=== PATIENT | male | born 1945 | race Caucasian/White ===

== ENCOUNTER 2021-09-17 15:13 | Inpatient (IN) | payer MEDICARE, SELFPAY ==
[~2021-09-17] VITALS: Ht 170.2 cm; Wt 64.5 kg
[~2021-09-17 15:13] MED LIST: AMAN100C19 PO; AMLO5TAB4 PO; ESCI10TA PO; FER300L PO; GLIP5TAB26 PO; HYT1 PO; LEVO25TA7 PO; TRAZ-250 PO
[2021-09-17 15:15] VITALS: BP_SYST 127
--- NOTE | 2021-09-17 15:15 | NUR ---
pt. bib ACLS from [facility] with c/o N/V and abd. pain X 3 weeks, was reported pt. has been to urgent care 3 X and given zofran and pain meds., pt. is actively vomitting coffee brown colored emesis, has hx. of stomach ulcer and surgery, is pale and tachycardic
--- NOTE | 2021-09-17 15:23 | NUR ---
ER at bedside examining patient.
[2021-09-17] MEDS ORDERED: PANTOPRAZOLE SODIUM 40 MG/VIAL (PROTONIX) IVP ONE (15:30)
[2021-09-17] MEDS ORDERED: ONDANSETRON HCL 4 MG/2 ML VIAL IVP ONE (15:30)
[2021-09-17] MEDS ORDERED: NACL 0.9% 1,000 ML IV ONE ×2 (15:30→22:00)
--- NOTE | 2021-09-17 15:34 | NUR ---
rectal exam done by Dr. Navarro, specimen sent
--- NOTE | 2021-09-17 15:40 | NUR ---
radiology at bedside for chest xray
[2021-09-17] MEDS ORDERED: NACL 0.9% 2,000 ML IV ONE (15:45)
[2021-09-17] MEDS ORDERED: cefTRIAXone 1 GM VIAL IM ONE (16:15)
--- NOTE | 2021-09-17 16:27 | NUR ---
pt. continue to vomit, IVP Zofran given
[2021-09-17 16:30] LABS: BASOPHILS # (AUTO) 0.1 K/uL (0.0-0.2); BASOPHILS % (AUTO) 0.7 % (0.0-2.0); EOSINOPHILS % (AUTO) 0.3 % (0.0-4.0); HEMOGLOBIN 11.1 g/dL (14.0-18.0); LYMPHOCYTES # (AUTO) 0.9 K/uL (1.0-5.5); LYMPHOCYTES % (AUTO) 9.2 % (20.5-51.5); MEAN CORPUSCULAR HEMOGLOBIN 33 pg (27-31); MEAN CORPUSCULAR HGB CONC 35 % (32-36); MEAN CORPUSCULAR VOLUME 95 fL (79.0-98.0); MONOCYTES # (AUTO) 0.3 K/uL (0.0-1.0); MONOCYTES % (AUTO) 2.8 % (1.7-9.3); NEUTROPHILS # (AUTO) 8.8 K/uL (1.8-7.7); PLATELET COUNT (AUTO) 377 K/uL (130-430); RED BLOOD CELL COUNT(AUTO) 3.37 MIL/uL (4.2-6.2); RED CELL DISTRIBUTION WIDTH 12.9 % (9.0-15.0); WHITE BLOOD COUNT (AUTO) 10.1 K/uL (4.8-10.8)
--- NOTE | 2021-09-17 16:36 | NUR ---
covid and MRSA swabs sent
[2021-09-17 16:45] LABS: ANION GAP 14 (5-15); CALCIUM 9.7 mg/dL (8.4-11.0); CHLORIDE 96 mmol/L (98-107); CREATININE 1.63 mg/dL (0.55-1.30); GLUCOSE 240 mg/dL (70-99); POTASSIUM 4.7 mmol/L (3.5-5.1); SODIUM SERUM 139 mmol/L (136-145); UREA NITROGEN, BLOOD 42 mg/dL (8-21)
--- NOTE | 2021-09-17 16:49 | NUR ---
Sister Laurence [phone]
--- NOTE | 2021-09-17 16:51 | NUR ---
pts. RR 40, O2 sat 100% pt. feels winded started O2 via NC at 2L/min
--- NOTE | 2021-09-17 16:56 | NUR ---
spoke with pts. sister Laurence phone update given
[2021-09-17 16:58] LABS: PROTHROMBIN TIME 10.2 SECS (9.5-12.5)
[2021-09-17 17:00] LABS: ALANINE AMINOTRANSFERASE 28 U/L (12-78); ASPARTATE AMINOTRANSFERASE 22 U/L (10-37); LIPASE 47 U/L (73-393); TOTAL BILIRUBIN 0.5 mg/dL (0.0-1.0)
[2021-09-17 17:05] LABS: ALCOHOL, BLOOD < 3 mg/dL (<10)
--- NOTE | 2021-09-17 18:01 | NUR ---
pts. states feels much better, less SOB remains on 2L/NC sat 99%, consent signed for CT with contrast
--- NOTE | 2021-09-17 18:35 | NUR ---
Patient transported to radiology via gurney, accompanied by staff, for CT scan.
--- NOTE | 2021-09-17 20:23 | NUR ---
16 # FR In and Out catheter with use of sterile technique. Immediate return of 200 ml urine noted. Urine sample collected and sent to lab. Pt tolerated procedure .
--- NOTE | 2021-09-17 20:24 | NUR ---
Pt A&Ox3, respirations even and unlabored, cap refill <3
--- NOTE | 2021-09-17 20:40 | NUR ---
Patient will be admitted to care of [facility]. Admitted to TELE unit. PENDING ASSIGNMENT. Belongings list completed. Complete and up to date summary report printed. SBAR report to be given at bedside with opportunity for questions.
[2021-09-17] MEDS ORDERED: ONDANSETRON HCL 4 MG/2 ML VIAL IVP PRN (21:00)
[2021-09-17 21:19] LABS: BILIRUBIN,URINE NEGATIVE (NEGATIVE); BLOOD, URINE NEGATIVE (NEGATIVE); CLARITY/URINE CLEAR (CLEAR); COLOR,URINE YELLOW (YELLOW); GLUCOSE,URINE NEGATIVE (NEGATIVE); KETONES,URINE 1+ (NEGATIVE); LEUKOCYTE ESTERASE ,URINE NEGATIVE (NEGATIVE); NITRITE, URINE NEGATIVE (NEGATIVE); PH,URINE 6.5 (5.0-8.0); PROTEIN URINE NEGATIVE (NEGATIVE); UROBILINOGEN,URINE 0.2 (0.2-1.0)
--- NOTE | 2021-09-17 21:46 | NUR ---
# 20 gauge angiocath placed to RFA. Use of asceptic technique. Opsite placed over site. Blood return noted. Flushed with 10 cc of normal saline. No evidence of infiltration noted. Patient tolerated well.
--- NOTE | 2021-09-17 22:04 | NUR ---
Transfer to 103B via ACLS protocol. Licensed nurse present. IV present no signs or symptoms of infiltration.
[2021-09-17 22:59] LABS: BASOPHILS % (AUTO) 0.1 % (0.0-2.0); EOSINOPHILS % (AUTO) 0.1 % (0.0-4.0); HEMATOCRIT 24.3 % (36-54); HEMOGLOBIN 7.8 g/dL (14.0-18.0); LYMPHOCYTES # (AUTO) 0.8 K/uL (1.0-5.5); LYMPHOCYTES % (AUTO) 7.1 % (20.5-51.5); MEAN CORPUSCULAR HEMOGLOBIN 33 pg (27-31); MEAN CORPUSCULAR HGB CONC 32 % (32-36); MEAN CORPUSCULAR VOLUME 102 fL (79.0-98.0); MONOCYTES # (AUTO) 0.5 K/uL (0.0-1.0); MONOCYTES % (AUTO) 4.5 % (1.7-9.3); NEUTROPHILS # (AUTO) 10.4 K/uL (1.8-7.7); NEUTROPHILS % (AUTO) 88.2 % (40.0-70.0); PLATELET COUNT (AUTO) 329 K/uL (130-430); RED BLOOD CELL COUNT(AUTO) 2.38 MIL/uL (4.2-6.2); RED CELL DISTRIBUTION WIDTH 13.5 % (9.0-15.0); WHITE BLOOD COUNT (AUTO) 11.8 K/uL (4.8-10.8)
[2021-09-18] VITALS (27 sets, daily range): BP systolic 62–119
[2021-09-18] MEDS: NACL 0.9% 1,000 ML IV SCH ×3 (00:25→16:15)
--- NOTE | 2021-09-18 00:43 | NUR ---
CONSULTATION CALLED FOR DR. ESEQUIEL LOPEZ IS SENIOR FORMULATION SCIENTIST FOR CONSULT OF GI BLEED ORDER BY SPOKE WITH KEYANNA
--- NOTE | 2021-09-18 03:10 | NUR ---
Rapid response late entry d/t patient care Patient's condition changed, breathing labored, desaturating, low B/P 54/34. Rapid response called
[2021-09-18] MEDS ORDERED: NACL 0.9% 1,000 ML IV ONE ×3 (03:30→11:00)
--- NOTE | 2021-09-18 03:46 | NUR ---
DR ANNABELLE VERGARA
--- NOTE | 2021-09-18 04:05 | NUR ---
TRANSFER FROM [facility] PT TRANSFERRED FROM [facility] VIA BED AT THIS TIME. PT IS OBTUNDED AND ON BIPAP. AT 409 PT BECAME BRADYCARDIC WITH HR ~37 SUSTAINING. ATROPINE WAS GIVEN AND AT 412 PT BECAME ASYSTOLE ON MONITOR, CPR WAS STARTED AND ALEX DOMINGUEZ CALLED. SEE CODE SHEET FOR DETAILS.
--- NOTE | 2021-09-18 04:06 | NUR ---
Transferred to ICU late entry d/t patient care Per Dr. Ortiz's order
--- NOTE | 2021-09-18 04:13 | NUR ---
BT INITIATION: Consent signed per FAMILY agreeing to administration of blood. Blood has been type and crossmatched. Blood sent from blood bank. Information on unit of blood checked against patient wristband at bedside by two nurses. All information matches. Patient or responsible libertarian informed of potential complications associated with blood transfusion. Informed of possible transfusion reaction symptoms. Aware of need to notify nurse at once of itching, shortness of breath, flushing, feeling of impending doom, or other symptoms not previously present. Vital signs taken within 5 minutes prior to initiation of transfusion. RN will remain with patient for first 15 minutes of transfusion at which time vital signs will be re-assessed.
--- NOTE | 2021-09-18 04:30 | NUR ---
RAPID BLOOD TRANSFUSION AT THIS TIME MD DR. ARMSTRONG CALLED FOR 2 UNITS PRBCS STAT TO BE RAPIDLY INFUSED. 2 UNITS PRBCS WERE OBTAINED FROM BLOOD BANK AND GIVEN VIA RAPID TRANSFUSER DURING PT CODE BLUE. AT THIS TIME CPR IS IN PROGRESS, PT IS STILL ASYSTOLE WITH ZERO PULSES.
--- NOTE | 2021-09-18 04:45 | NUR ---
DR. FREIDA LOZADA MD REQUESTING TO SPEAK WITH GI CONSULT REGARDING PT. DR. GUAN WAS CONSULTED AND ORDERS RECEIVED. WILL CARRY OUT ORDERED.
--- NOTE | 2021-09-18 04:53 | NUR ---
INTUBATION PT INTUBATED BY ER AT THIS TIME. PT IS OBTUNDED S/P CODE BLUE WITH ROSC. ETT 7.5, 25 CM AT LIP LINE. CURRENT VENT SETTINGS: AC 20, TV 500, FIO2 100%, PEEP 5. WILL CONTINUE TO MONITOR PT.
[2021-09-18] MEDS ORDERED: NOREPINEPHRINE 4 MG/4 ML VIAL IV ONE ×3 (04:58→08:48)
[2021-09-18] MEDS ORDERED: PANTOPRAZOLE SODIUM 40 MG/VIAL (PROTONIX) IVP ONE (05:15)
[2021-09-18] MEDS ORDERED: AZITHROMYCIN 250 MG in NS 250 ML IV ONE (05:15)
--- NOTE | 2021-09-18 05:20 | NUR ---
RT NOTES AT BEDSIDE WHEN ALEX DOMINGUEZ CALLED @ 0413. CPR STARTED. ROSC ACHIEVED @ 0444. ASSISTED DR ARMSTRONG WITH INTUBATION @ 0453 USING 7.5 ETT SECURED AT [address]. SUCTIONED LARGE AMOUNT OF BLOOD ORALLY DURING CPR. VERIFIED ETT PLACEMENT WITH CO2 DETECTOR. B/S HEARD BILATERALLY WITH GOOD BILATERAL CHEST RISE. CXRAY TO BE OBTAINED. ABG TO BE OBTAINED 1 HOUR POST INTUBATION.
[2021-09-18] MEDS ORDERED: AZITHROMYCIN 500 MG/VIAL (ZITHROMAX) IV ONE (05:28)
[2021-09-18] MEDS ORDERED: IPRATROPIUM/ALBUTEROL SULFATE 3 ML AMPUL.NEB (DUONEB) INH PRN (05:30)
[2021-09-18] MEDS ORDERED: PANTOPRAZOLE SODIUM 40 MG/VIAL (PROTONIX) ONE (05:32)
--- NOTE | 2021-09-18 05:40 | NUR ---
PAGED DR. ALANIS [phone] ORDERS SPOKE WITH JOSE
[2021-09-18] MEDS ORDERED: NALOXONE HCL 0.4 MG/ML AMP (NARCAN) IVP PRN (05:45)
[2021-09-18] MEDS ORDERED: MORPHINE 2 MG/ML INJ. SYRINGE IVP PRN (05:45)
[2021-09-18] MEDS ORDERED: LORazepam 2 MG/ML VIAL IM PRN (05:45)
[2021-09-18] MEDS ORDERED: PROPOFOL DRIP 100 ML IV PRN (05:45)
[2021-09-18] MEDS: PANTOPRAZOLE SODIUM 40 MG in NS 50 ML IV SCH ×4 (05:53→21:29)
--- NOTE | 2021-09-18 06:07 | NUR ---
DR. ANNABELLE ABAD MADE AWARE OF PT CURRENT ABGS AND THAT PT IS HYPOTENSIVE DESPITE MAX DOSING OF LEVOPHED. ORDERS RECEIVED FROM MD AND WILL BE CARRIED OUT ORDERED.
[2021-09-18] MEDS ORDERED: SODIUM BICARBONATE 8.4% JECT 50 MEQ/50 ML SYRINGE IVP ONE ×2 (06:15→13:00)
[2021-09-18] MEDS ORDERED: ALBUMIN HUMAN 25% 100 ML IV PRN (06:15)
[2021-09-18] MEDS ORDERED: SODIUM BICARBONATE 8.4% JECT 100 MEQ in 0.45% NACL 1,000 ML IVP SCH (06:15)
[2021-09-18] MEDS ORDERED: PHENYLEPHRINE HCL 10 MG/ML VIAL (NEOSYNEPHRINE) ONE (06:15)
[2021-09-18] MEDS ORDERED: ALBUMIN HUMAN 25% 100 ML IV ONE (06:21)
[2021-09-18] MEDS ORDERED: SODIUM BICARBONATE 8.4% JECT 50 MEQ/50 ML SYRINGE ONE ×2 (06:32→22:13)
[2021-09-18] MEDS ORDERED: IPRATROPIUM/ALBUTEROL SULFATE 3 ML AMPUL.NEB (DUONEB) INH SCH (07:00)
--- NOTE | 2021-09-18 07:50 | NUR ---
ENDORSEMENT BEDSIDE REPORT GIVEN TO AM RN USING SBAR APPROACH.
[2021-09-18 08:07] LABS: EOSINOPHILS # (AUTO) 0.2 K/uL (0.0-0.4); EOSINOPHILS % (AUTO) 5.1 % (0.0-4.0); HEMATOCRIT 29.4 % (36-54); HEMOGLOBIN 9.5 g/dL (14.0-18.0); LYMPHOCYTES # (AUTO) 1.1 K/uL (1.0-5.5); MEAN CORPUSCULAR HEMOGLOBIN 31 pg (27-31); MEAN CORPUSCULAR HGB CONC 32 % (32-36); MEAN CORPUSCULAR VOLUME 95 fL (79.0-98.0); MONOCYTES # (AUTO) 0.4 K/uL (0.0-1.0); MONOCYTES % (AUTO) 10.8 % (1.7-9.3); NEUTROPHILS # (AUTO) 1.9 K/uL (1.8-7.7); NEUTROPHILS % (AUTO) 54.1 % (40.0-70.0); PLATELET COUNT (AUTO) 201 K/uL (130-430); RED CELL DISTRIBUTION WIDTH 16.4 % (9.0-15.0); WHITE BLOOD COUNT (AUTO) 3.5 K/uL (4.8-10.8)
[2021-09-18] MEDS ORDERED: fentaNYL CITRATE/PF 100 MCG/2 ML AMP ONE (08:07)
[2021-09-18] MEDS: NOREPINEPHRINE BITARTRATE 8 MG in NS 242 ML IV PRN ×3 (08:08→11:04)
[2021-09-18] MEDS ORDERED: MIDAZOLAM HCL 5 MG/5 ML VIAL ONE (08:08)
[2021-09-18] MEDS: PHENYLEPHRINE HCL 100 MG in NS 240 ML IV PRN (08:11)
[2021-09-18 08:16] LABS: ANION GAP 29 (5-15); CALCIUM 7.2 mg/dL (8.4-11.0); CHLORIDE 113 mmol/L (98-107); CREATININE 2.45 mg/dL (0.55-1.30); GLUCOSE 120 mg/dL (70-99); POTASSIUM 4.8 mmol/L (3.5-5.1); SODIUM SERUM 157 mmol/L (136-145); UREA NITROGEN, BLOOD 57 mg/dL (8-21)
[2021-09-18 08:23] LABS: CHOLESTEROL 67 mg/dL (<200); HDL CHOLESTEROL 27 mg/dL (>45); LDL CHOLESTEROL 33 mg/dL (<100); TRIGLYCERIDES 68 mg/dL (30-150)
[2021-09-18 08:30] LABS: ALANINE AMINOTRANSFERASE 2702 U/L (12-78); ALBUMIN 1.5 g/dL (3.4-4.8); PHOSPHORUS 11.3 mg/dL (2.7-4.5); THYROID STIMULATING HORMONE 0.41 uIu/mL (0.36-3.74); TOTAL BILIRUBIN 0.5 mg/dL (0.0-1.0)
--- NOTE | 2021-09-18 09:15 | NUR ---
EGD done at bedside by Dr Gallo, received new orders.
--- NOTE | 2021-09-18 09:30 | NUR ---
Called Dr. Puma Jansen with a consult, spoke with Laine from doctors office
[2021-09-18 09:32] LABS: ASPARTATE AMINOTRANSFERASE 3444 U/L (10-37)
--- NOTE | 2021-09-18 09:45 | NUR ---
Called Dr. Avelar with a consult, spoke with Jena parker doctors office
--- NOTE | 2021-09-18 10:10 | NUR ---
Nutrition Update Molina Scale 15 noted. Pt admitted for dehydration, sepsis. Diet: NPO BMI: 22.3 kg/m2 RD to follow per nutrition care standards.
--- NOTE | 2021-09-18 11:00 | NUR ---
Dr Avelar at bedside, updated on pt status. New orders received
[2021-09-18 11:45] LABS: HEMOGLOBIN 8.4 g/dL (14.0-18.0)
[2021-09-18 11:49] LABS: HEMATOCRIT 25.6 % (36-54); MEAN CORPUSCULAR HEMOGLOBIN 31 pg (27-31); MEAN CORPUSCULAR HGB CONC 33 % (32-36); MEAN CORPUSCULAR VOLUME 93 fL (79.0-98.0); PLATELET COUNT (AUTO) 156 K/uL (130-430); RED BLOOD CELL COUNT(AUTO) 2.74 MIL/uL (4.2-6.2); RED CELL DISTRIBUTION WIDTH 16.1 % (9.0-15.0)
[2021-09-18 11:52] LABS: WHITE BLOOD COUNT (AUTO) 1.2 K/uL (4.8-10.8)
--- NOTE | 2021-09-18 12:00 | NUR ---
Spoke with Dr Danielson on the telephone, updated on pt status. New orders received
--- NOTE | 2021-09-18 12:00 | NUR ---
Two liter NS boluses given, no change in blood pressure.
--- NOTE | 2021-09-18 12:21 | NUR ---
Called Dr. Rush with a consult,spoke with Berenice from the exchange
--- NOTE | 2021-09-18 13:00 | NUR ---
Inserted Chong catheter using sterile technique. Pt tolerated procedure, no signs of discomfort.
[2021-09-18] MEDS ORDERED: cefTRIAXone 1 GM in D5W 50 ML IV SCH (14:00)
--- NOTE | 2021-09-18 15:40 | NUR ---
RT Note 1540 Increased PEEP to [address] Danielson RN at bedside and is aware of changes Addendum: 09/18/21 at 1632 by Danelle Willett RT Amended: Links added.
--- NOTE | 2021-09-18 16:30 | NUR ---
Pt's family at bedside, answered all questions.
[2021-09-18] MEDS: VASOPRESSIN 40 UNITS in NS 38 ML IV PRN (17:16)
[2021-09-18] MEDS: NOREPINEPHRINE BITARTRATE 16 MG in NS 218 ML IV PRN (17:43)
--- NOTE | 2021-09-18 18:30 | NUR ---
Transfused one unit of PRBCs. Pt tolerated well
--- NOTE | 2021-09-18 19:30 | NUR ---
Received report and assumed care. Patient non responsive. Vent to ETT in place with settings in AC 20. O2 saturations continue to deteriorate ranging from 67-73%. Blood pressure being supported with vasopressors but still not maintaining normal values. BP 64/33 Nurse will keep Doctors informed.
[2021-09-18] MEDS: SODIUM BICARBONATE 8.4% JECT 100 MEQ in D5W 1,000 ML IVP SCH (20:00)
[2021-09-18 20:42] LABS: HEMOGLOBIN 9.6 g/dL (14.0-18.0); MEAN CORPUSCULAR HEMOGLOBIN 30 pg (27-31); MEAN CORPUSCULAR HGB CONC 33 % (32-36); MEAN CORPUSCULAR VOLUME 89 fL (79.0-98.0); PLATELET COUNT (AUTO) 124 K/uL (130-430); RED BLOOD CELL COUNT(AUTO) 3.25 MIL/uL (4.2-6.2); RED CELL DISTRIBUTION WIDTH 16.9 % (9.0-15.0)
[2021-09-18 20:55] LABS: INR 2.8 (0.80-1.20); PROTHROMBIN TIME 28.8 SECS (9.5-12.5)
[2021-09-18] MEDS: ALBUMIN HUMAN 25% 100 ML IV PRN (21:33)
[2021-09-18 21:34] LABS: WHITE BLOOD COUNT (AUTO) 0.8 K/uL (4.8-10.8)
--- NOTE | 2021-09-18 21:42 | NUR ---
blood pressure 62/33 levophed maxed at 1 mcg/kg/min, Neosynephrine maxed at 3 mcg/k/min and vasopressin maxed at 0.04 units/min. Albumin 25 % 100 ml started to attempt to support BP. if no results Dr Avelar will be paged.
--- NOTE | 2021-09-18 21:56 | NUR ---
PAGED: DR. BELL [phone] CRITICAL LABS SPOKE WITH BK
--- NOTE | 2021-09-18 21:57 | NUR ---
PAGED DR. ALANIS [phone] ORDERS SPOKE WITH BK
--- NOTE | 2021-09-18 22:00 | NUR ---
Received call back from Dr Avelar after reporting low BP 63/37. Order received to give NS bolus 500 cc x 1 now. Received call back from Dr Danielson, reported low O2 saturations 64%. Order received to increase peep to 10 +.
[2021-09-18] MEDS ORDERED: NS 500 ML IV ONE (22:15)
--- NOTE | 2021-09-18 22:15 | NUR ---
Dr Danielson at bedside. Order for Dopamine drip received and infusion has been started.
[2021-09-18] MEDS ORDERED: DOPamine PREMIX 250 ML IV ONE (22:41)
--- NOTE | 2021-09-18 23:34 | NUR ---
PAGED DR. ALANIS [phone] ORDERS SPOKE WITH BK
[2021-09-18] MEDS: DOPamine PREMIX 250 ML IV PRN (23:44)
[2021-09-18 23:57] LABS: INR 2.8 (0.80-1.20); PROTHROMBIN TIME 28.6 SECS (9.5-12.5)
[2021-09-19] VITALS (13 sets, daily range): BP systolic 58–83
[2021-09-19] MEDS ORDERED: SODIUM BICARBONATE 8.4% JECT 50 MEQ/50 ML SYRINGE ONE (00:05)
--- NOTE | 2021-09-19 00:08 | NUR ---
ABG results reported to Dr Danielson. Orders to infuse sodium Bicarb 2 amps received and given to patient.
[2021-09-19] MEDS ORDERED: SODIUM BICARBONATE 8.4% JECT 50 MEQ/50 ML SYRINGE IVP ONE (00:15)
[2021-09-19] MEDS: PANTOPRAZOLE SODIUM 40 MG in NS 50 ML IV SCH ×3 (01:15→08:00)
[2021-09-19 03:28] LABS: MEAN CORPUSCULAR HEMOGLOBIN 30 pg (27-31); MEAN CORPUSCULAR HGB CONC 33 % (32-36); MEAN CORPUSCULAR VOLUME 89 fL (79.0-98.0); PLATELET COUNT (AUTO) 95 K/uL (130-430); RED BLOOD CELL COUNT(AUTO) 2.98 MIL/uL (4.2-6.2); RED CELL DISTRIBUTION WIDTH 17.1 % (9.0-15.0)
[2021-09-19] MEDS ORDERED: VANCOMYCIN HCL 1 GM/NS PREMIX 250 ML IV ONE (03:30)
[2021-09-19 03:31] LABS: HEMATOCRIT 26.8 % (36-54); HEMOGLOBIN 8.9 g/dL (14.0-18.0)
[2021-09-19 03:32] LABS: ANION GAP 26 (5-15); CHLORIDE 114 mmol/L (98-107); CREATININE 2.99 mg/dL (0.55-1.30); POTASSIUM 3.7 mmol/L (3.5-5.1); SODIUM SERUM 158 mmol/L (136-145); UREA NITROGEN, BLOOD 71 mg/dL (8-21)
[2021-09-19 03:34] LABS: CALCIUM 5.9 mg/dL (8.4-11.0)
[2021-09-19 03:35] LABS: GLUCOSE 47 mg/dL (70-99)
[2021-09-19 03:39] LABS: WHITE BLOOD COUNT (AUTO) 1.7 K/uL (4.8-10.8)
[2021-09-19] MEDS ORDERED: DEXTROSE 50% JECT 50 ML DISP.SYRIN ONE (03:41)
--- NOTE | 2021-09-19 03:50 | NUR ---
Dr Cheko Rush at bedside for evaluation and assessment. Orders received. will continue to monitor.
[2021-09-19 04:05] LABS: TOTAL BILIRUBIN 0.7 mg/dL (0.0-1.0)
[2021-09-19 04:06] LABS: ALANINE AMINOTRANSFERASE 3404 U/L (12-78); ALBUMIN 1.9 g/dL (3.4-4.8)
[2021-09-19] MEDS ORDERED: D5NS 1,000 ML IV SCH (04:30)
[2021-09-19 05:40] LABS: ASPARTATE AMINOTRANSFERASE 5222 U/L (10-37)
[2021-09-19] MEDS ORDERED: MEROPENEM 500 MG in NS 50 ML IV SCH (06:00)
[2021-09-19 06:37] LABS: ATYPICAL LYMPHOCYTES % 4 % (0-0); BAND % (MANUAL) 18 % (0-6); BASOPHILS % (MANUAL) 0 % (0-2); EOSINOPHILS % (MANUAL) 0 % (0-7); LYMPHOCYTES % (MANUAL) 55 % (20-46); METAMYELOCYTES % 10 % (0-0); MONOCYTES % (MANUAL) 4 % (0-11); MYELOCYTES % 4 % (0-0)
--- NOTE | 2021-09-19 07:15 | NUR ---
OPENING NOTE: REPORT RCVD FROM OUTGOING NOC RN, ALL CARES ASSUMED. PATIENT REMAINS CLINICALLY UNSTABLE, CURRENT BP 77/42, HR54, SPO2 53%. PATIENT IS A 1:1 DUE TO MULTIPLE DRIPS AND INSTABILITY.
[2021-09-19] MEDS: ALBUMIN HUMAN 25% 100 ML IV PRN (08:00)
--- NOTE | 2021-09-19 08:00 | NUR ---
DR. ELLIS MAKING ROUNDS, UPDATES GIVEN, NO NEW ORDERS.
--- NOTE | 2021-09-19 08:15 | NUR ---
DR. ALANIS MAKING ROUNDS, BEDSIDE REPORT GIVE, NO NEW ORDERS.
--- NOTE | 2021-09-19 08:50 | NUR ---
PATIENT CODE STATUS CHANGED TO DNR BY SISTER LEANDRA. VERIFIED AND CONFIRMED BY SECOND RN. DNR PRINTED AND SIGNED BY TWO RN'S, NOTIFIED OF CODE STATUS CHANGE. NEW DNR FORM IN CHART. CHARGE NURSE MADE AWARE.
[2021-09-19] MEDS ORDERED: CEFEPIME 1 GM in D5W 50 ML IV SCH (09:00)
[2021-09-19] MEDS ORDERED: AZITHROMYCIN 250 MG in NS 250 ML IV SCH (09:00)
[2021-09-19] MEDS: SODIUM BICARBONATE 8.4% JECT 100 MEQ in D5W 1,000 ML IVP SCH (09:01)
[2021-09-19] MEDS: DOPamine PREMIX 250 ML IV PRN (09:01)
[2021-09-19] MEDS: PHENYLEPHRINE HCL 100 MG in NS 240 ML IV PRN (09:02)
[2021-09-19] MEDS: NOREPINEPHRINE BITARTRATE 16 MG in NS 218 ML IV PRN (09:02)
[2021-09-19] MEDS: VASOPRESSIN 40 UNITS in NS 38 ML IV PRN (09:03)
--- NOTE | 2021-09-19 09:07 | NUR ---
FAMILY ADVISED TO COME TO HOSPITAL. SISTER LEANDRA AND COUSIN PARISH AGREED.
--- NOTE | 2021-09-19 09:08 | NUR ---
VITALS: BP 60/42, HR 60, R20, SPO2 41% ON MONITOR.
--- NOTE | 2021-09-19 09:09 | NUR ---
VENT SETTINGS: AC, R20, TV500, FIO2 100%, PEEP 10, SPO2 40% ON MONITOR. PATIENT PALE AND COOL TO TOUCH.
--- NOTE | 2021-09-19 09:45 | NUR ---
FAMILY AT BEDSIDE, ALL QUESTIONS ANSWERED. FAMILY REMAINS IN AGREEABLE WITH DNR STATUS.
--- NOTE | 2021-09-19 10:08 | NUR ---
ASYSTOLE NOTED ON MONITOR, PULSES NOT PALPABLE. ETT REMAINS IN PLACE, PATIENT REMAINS ON VENTILATOR.
--- NOTE | 2021-09-19 10:09 | NUR ---
TIME OF 1009, VERIFIED BY TWO RNS.
--- NOTE | 2021-09-19 10:10 | NUR ---
VENTILATOR TURNED OFF BY RT, FAMILY AT BEDSIDE
--- NOTE | 2021-09-19 10:14 | NUR ---
ALL MD'S HAVE BEEN NOTIFIED OF TOD.
--- NOTE | 2021-09-19 10:15 | NUR ---
[facility] REFERENCE # [id number]
--- NOTE | 2021-09-19 10:16 | NUR ---
HEAVY LIFT RIGGER CALLED, NOT A CORONERS CASE, BODY RELEASED, NO REFERENCE # REQUIRED.
--- NOTE | 2021-09-19 10:59 | NUR ---
PER SISTER LEANDRA, ARRANGEMENTS HAVE BEEN MADE FOR [facility] WILL CONTACT TO INFORM OF .
--- NOTE | 2021-09-19 11:15 | NUR ---
SPOKE TO FARZANA AT [facility], PATIENT WILL BE PICKED UP IN APPROX 3-4 HOURS BY TRANSPORT. WILL MOVE BODY TO [facility] [place] AT THIS TIME.
[2021-09-20] MEDS ORDERED: VANCOMYCIN HCL 1,000 MG in NS 250 ML IV SCH (21:00)
== END 2021-09-19 10:10 | DRG 871 ==
LOC: SED 15:13 → STU 20:15 → SIC 09-18 04:06
PROVIDERS: ADMIT Internal Medicine; ATTEND Internal Medicine
PROC: 0DB78ZX Excision of Stomach, Pylorus, Via Natural or Artificial Opening Endoscopic, Diagnostic (ICD-10-PCS; 2021-09-18)
PROC: 0W3P8ZZ Control Bleeding in Gastrointestinal Tract, Via Natural or Artificial Opening Endoscopic (ICD-10-PCS; 2021-09-18)
PROC: 02HV33Z Insertion of Infusion Device into Superior Vena Cava, Percutaneous Approach (ICD-10-PCS; 2021-09-18)
PROC: B548ZZA Ultrasonography of Superior Vena Cava, Guidance (ICD-10-PCS; 2021-09-18)
PROC: 30233N1 Transfusion of Nonautologous Red Blood Cells into Peripheral Vein, Percutaneous Approach (ICD-10-PCS; 2021-09-18)
PROC: 5A09357 Assistance with Respiratory Ventilation, Less than 24 Consecutive Hours, Continuous Positive Airway Pressure (ICD-10-PCS; 2021-09-18)
PROC: 0BH17EZ Insertion of Endotracheal Airway into Trachea, Via Natural or Artificial Opening (ICD-10-PCS; 2021-09-18)
PROC: 5A1945Z Respiratory Ventilation, 24-96 Consecutive Hours (ICD-10-PCS; 2021-09-18)
PROC: 5A12012 Performance of Cardiac Output, Single, Manual (ICD-10-PCS; principal; 2021-09-19)
DX: A41.9 Sepsis, unspecified organism (principal); R65.21 Severe sepsis with septic shock; K26.4 Chronic or unspecified duodenal ulcer with hemorrhage; J96.01 Acute respiratory failure with hypoxia; J69.0 Pneumonitis due to inhalation of food and vomit; G93.1 Anoxic brain damage, not elsewhere classified; N17.9 Acute kidney failure, unspecified; K29.80 Duodenitis without bleeding; K29.70 Gastritis, unspecified, without bleeding; E78.5 Hyperlipidemia, unspecified; I10 Essential (primary) hypertension; F31.9 Bipolar disorder, unspecified; F20.9 Schizophrenia, unspecified; G20 Parkinson's disease; E03.9 Hypothyroidism, unspecified; J44.9 Chronic obstructive pulmonary disease, unspecified; R57.1 Hypovolemic shock; Z20.822 Contact with and (suspected) exposure to COVID-19; K72.90 Hepatic failure, unspecified without coma; F02.80 Dementia in other diseases classified elsewhere, unspecified severity, without behavioral disturbance, psychotic disturbance, mood disturbance, and anxiety; D70.9 Neutropenia, unspecified; I46.9 Cardiac arrest, cause unspecified; E11.9 Type 2 diabetes mellitus without complications; D50.0 Iron deficiency anemia secondary to blood loss (chronic); Z88.0 Allergy status to penicillin; Z91.041 Radiographic dye allergy status; Z79.899 Other long term (current) drug therapy; Z85.828 Personal history of other malignant neoplasm of skin; Z87.19 Personal history of other diseases of the digestive system
CPT/HCPCS: 36415; 36430; 36600; 43255; 71045; 76376; 80053; 80061; 81003; 82272; 82803-TC; 82962; 83051; 83605; 83690; 83735; 83880; 84100; 84443; 84484; 85007; 85014; 85025; 85027; 85048; 85049-TC; 85610-TC; 85730-TC; 86886; 86900; 86901; 86920; 87040; 87081; 88305; 88312; 88313; 92950; 93005; 94003; 94760; 96361; 96365; 96375; 99291; C1889; C9113; G0378; G0482; J0456; J0692; J0696; J1265; J2185; J2250; J2370; J2405; J3010; J3370; J3490; J7050; J7060; P9021; P9046; Q9967